=== PATIENT | male | born 1980 | race African-American/Black ===

== ENCOUNTER 2023-07-23 18:56 | Emergency (ER) | payer BC, SELFPAY ==
[2023-07-23 20:35] LABS: SARS-CoV-2 NAA Rapid Test Not Detected (NotDetected)
== END 2023-07-23 20:00 | disposition home or self-care (01) ==
LOC: CSHERS 18:56
DX: J10.1 Influenza due to other identified influenza virus with other respiratory manifestations (principal); I10 Essential (primary) hypertension; E10.9 Type 1 diabetes mellitus without complications
CPT/HCPCS: 99283